=== PATIENT | male | born 1990 | race Caucasian/White ===

== ENCOUNTER 2019-05-04 02:22 | Emergency (ER) | payer MEDICAID, OTHER ==
[~2019-05-04] VITALS: Ht 167.6 cm; Wt 59.0 kg
[2019-05-04 02:37] VITALS: Ht 167.6 cm; Wt 59.0 kg
[2019-05-04] MEDS ORDERED: ONDANSETRON (ODT) 4 MG TAB ODT STA (03:19)
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
[2019-05-04] MEDS ORDERED: LIDOCAINE/MYLANTA 40 ML BTL PO ONE (03:30)
[2019-05-04] MEDS ORDERED: FAMOTIDINE 20 MG TAB PO ONE (03:30)
[2019-05-04] MEDS ORDERED: LORAZEPAM 2 MG INJ IM ONE (03:30)
[2019-05-04] MEDS ORDERED: ONDA4TAB8 PO (06:30)
[2019-05-04] MEDS ORDERED: DICY10CA40 PO (06:30)
[2019-05-04] MEDS ORDERED: FAMO-96 PO (06:31)
[2019-05-04] MEDS ORDERED: OMEP40CA6 PO (06:32)
[2019-05-04 06:46] VITALS: BP 117/68; PULSE 58; RESP 18
== END 2019-05-04 06:48 | disposition home or self-care (01) ==
LOC: FTE 02:22
DX: R10.11 Right upper quadrant pain (principal); F12.90 Cannabis use, unspecified, uncomplicated
CPT/HCPCS: 76705; 80053; 80307; 81001; 82150; 83690; 85025; 96372; J2060; Z7502; Z7610